=== PATIENT | female | born 1995 | race Caucasian/White ===

== ENCOUNTER → 2017-05-05 | Outpatient (CLI) | payer BC ==
[2017-05-09 01:52] LABS: CHLAMYDIA TRACH RNA*** NOT DETECTED (NOT DETECTED); GC (NEIS GONORRHOEAE)RNA** NOT DETECTED (NOT DETECTED)
== END | disposition home or self-care (01) ==
LOC: C.LABSPEC 14:47
PROVIDERS: ATTEND Obstetrics & Gynecology
DX: Z34.01 Encounter for supervision of normal first pregnancy, first trimester (principal)

== ENCOUNTER → 2017-05-05 | Outpatient (CLI) | payer BC | END | disposition home or self-care (01) | LOC: C.PAPS 15:09 | PROVIDERS: ATTEND Obstetrics & Gynecology | DX: Z34.01 Encounter for supervision of normal first pregnancy, first trimester (principal) ==

== ENCOUNTER → 2017-06-30 | Outpatient (CLI) | payer OTHER ==
[2017-06-30 13:10] LABS: BASO % 0.1 %; BASO ABS # 0.01 K/uL (0-0.2); EOS % 1.5 %; EOS ABS # 0.13 K/uL (0-0.5); HEMATOCRIT 35.9 % (37-47); HEMOGLOBIN 12.6 g/dL (12.0-16.0); IG# 0.05 K/uL (0.00-0.02); LYMPH % 13.5 %; LYMPH ABS # 1.19 K/uL (1.2-3.4); MEAN CELL VOLUME 87.1 fL (80-100); MEAN CORPUSCULAR HEMOGLOBIN 30.6 pg (25-34); MEAN CORPUSCULAR HGB CONC 35.1 g/dl (32-36); MEAN PLATELET VOLUME 9.8 fL (7.4-10.4); MONO % 5.2 %; MONO ABS # 0.46 K/uL (0.11-0.59); NEUT % 79.1 %; NEUT ABS # 6.96 K/uL (1.4-6.5); PLATELET COUNT 228 K/uL (130-400); RED CELL DISTRIBUTION WIDTH CV 13.1 % (11.5-14.5); RED CELL DISTRIBUTION WIDTH SD 42.2 fL (36.4-46.3)
== END | disposition home or self-care (01) ==
LOC: C.LAB 09:49
PROVIDERS: ATTEND Obstetrics & Gynecology
DX: Z34.02 Encounter for supervision of normal first pregnancy, second trimester (principal); Z3A.00 Weeks of gestation of pregnancy not specified

== ENCOUNTER → 2017-09-22 | Outpatient (CLI) | payer OTHER | END | disposition home or self-care (01) | LOC: C.LAB 16:09 | PROVIDERS: ATTEND Obstetrics & Gynecology | DX: R81 Glycosuria (principal) ==

== ENCOUNTER → 2017-10-06 | Outpatient (CLI) | payer OTHER | END | disposition home or self-care (01) | LOC: C.LABSPEC 14:17 | PROVIDERS: ATTEND Obstetrics & Gynecology | DX: O99.89 Other specified diseases and conditions complicating pregnancy, childbirth and the puerperium (principal); R07.0 Pain in throat; Z3A.00 Weeks of gestation of pregnancy not specified ==

== ENCOUNTER → 2018-01-29 | Outpatient (CLI) | payer OTHER ==
[~2018-01-29] MED LIST: PRENTAB26 PO
[2018-01-29 12:58] LABS: HEMATOCRIT 39.9 % (37-47); HEMOGLOBIN 13.4 g/dL (12.0-16.0)
== END | disposition home or self-care (01) ==
LOC: C.LAB 12:05
PROVIDERS: ATTEND Obstetrics & Gynecology
DX: D64.9 Anemia, unspecified (principal)

== ENCOUNTER → 2018-01-29 | Outpatient (CLI) | payer OTHER | END | disposition home or self-care (01) | LOC: C.PAPS 14:49 | PROVIDERS: ATTEND Obstetrics & Gynecology | DX: Z39.2 Encounter for routine postpartum follow-up (principal) ==

== ENCOUNTER 2020-05-30 07:32 | Inpatient (IN) ==
[2020-05-30] MEDS ORDERED: OXYTOCIN 30 UNITS/500 ML BAG IV PRN ×3 (08:30→16:32)
[2020-05-30] MEDS ORDERED: OXYTOCIN 30 UNITS/500ML NSS ONE (08:55)
[2020-05-30 09:06] LABS: Hematocrit (blood only) 36.2 % (37-47); Hemoglobin 12.7 g/dL (12.0-16.0); Mean Corpuscular Hemoglobin 31.4 pg (25-34); Mean Corpuscular Hgb Conc 35.1 g/dL (32-36); Mean Corpuscular Volume 89.4 fL (80-100); Mean Platelet Volume 10.7 fL (7.4-10.4); Platelet Count 311 K/uL (130-400); RDW Coefficient of Variation 13.2 % (11.5-14.5); RDW Standard Deviation 42.7 fL (36.4-46.3); Red Blood Count 4.05 M/uL (4.2-5.4)
[2020-05-30] MEDS: LACTATED RINGER'S 1,000 ML IV PRN ×2 (09:15→17:49)
[2020-05-30] MEDS: LABETALOL HCL 100 MG TAB PO SCH ×2 (11:53→17:32)
[2020-05-30] MEDS ORDERED: SODIUM CHLORIDE 0.9% INJ 10 ML VIAL ONE (15:24)
[2020-05-30] MEDS ORDERED: BUPIVACAINE 0.25% 30 ML VIAL ONE (15:24)
[2020-05-30] MEDS ORDERED: ePHEDrine sulfate 50 MG/ML AMP ONE (15:24)
[2020-05-30] MEDS ORDERED: fentaNYL citrate 100 MCG/2 ML VIAL ONE (15:24)
[2020-05-30] MEDS ORDERED: fentaNYL 2MCG/ML ROPIVACAINE 1.25MG/ML 100 ML BAG EPI ONE (15:25)
--- NOTE | 2020-05-30 15:31 | Anesthesiology Consultation ---
Date of Service May 30, 2020 Assessment & Plan (1) Encounter for pre-operative examination: Chart Review Chart Review: Acceptable Risk for Labor Epidural History Height/Weight Height: 5 ft 6 in Weight: 76.204 kg Allergies Allergy/AdvReac Type Severity Reaction Status Date / Time No Known Allergies Allergy Verified 05/30/20 07:43 Medications Home Medications Medication Instructions Recorded Confirmed Last Taken Multivit/Min/Iron/Fol Ac/Pren 1 tab PO DAILY #0 tab 12/15/17 05/30/20 05/29/20 ( Vitamin) calcium carbonate-vitamin D3 1 tab PO DAILY 05/30/20 05/30/20 05/29/20 [Calcium + D] Active Medications Generic Name Dose Route Start Last Admin Trade Name Freq PRN Reason Stop Dose Admin Lactated Ringer's 1,000 mls @ 125 mls/hr 05/30/20 08:30 05/30/20 09:15 Lr IV 06/01/20 08:29 125 mls/hr .Q8H PRN Administration L&D Protocol Protocol Oxytocin 30 units in 500 mls @ 10 mls/hr 05/30/20 08:35 05/30/20 13:22 Pitocin IV 06/01/20 08:34 0.6 units/hr .Q24H PRN 10 mls/hr Labor Induction/Augmentation Titration Protocol 0.6 UNITS/HR Labetalol HCl 100 mg 05/30/20 12:00 05/30/20 11:53 Labetalol Hcl 100 Mg Tab PO 06/29/20 11:59 Not Given [id number] DARCY Past Medical History Medical History (Updated 05/30/20 @ 15:31 by Mookie Farmer MD) COVID-19 No known health problems Past Family History Family History Mother Diabetes Brother Diabetes Past Surgical History Surgical History No pertinent past surgical history Social History Smoking Status: Never smoker tobacco type: cigarettes Do You Dip or Chew Tobacco: No Smoking End Date: 2014 Hx Alcohol Use: No Hx Substance Use: No Physical Exam Vital Signs Last Vital Signs Temp 36.9 C 05/30/20 11:10 Pulse 85 05/30/20 15:21 Resp 18 05/30/20 12:17 BP 193/107 H 05/30/20 15:21 Testing Laboratory Results 05/30/20 08:54
[2020-05-30] MEDS ORDERED: ePHEDrine sulfate 50 MG/ML AMP IV PRN (16:09)
[2020-05-30] MEDS ORDERED: NALOXONE HCL 0.4 MG/1 ML VIAL/CARP IV PRN (16:09)
[2020-05-30] MEDS ORDERED: NALOXONE HCL 1 MG in SODIUM CHLORIDE 0.9% 1000ML 1,000 ML IV PRN (16:09)
[2020-05-30] MEDS ORDERED: fentaNYL 2MCG/ML ROPIVACAINE 1.25MG/ML 100 ML BAG EPI PRN (16:09)
[2020-05-30] MEDS ORDERED: diphenhydrAMINE 50 MG/ML VIAL IV PRN (16:09)
[2020-05-30] MEDS ORDERED: SUPERCREAM 0.870% 15 GM JAR EXT PRN (16:32)
[2020-05-30] MEDS ORDERED: HYDROCORTISONE ACETATE 25 MG SUPP PR PRN (16:32)
[2020-05-30] MEDS ORDERED: ACETAMINOPHEN 325 MG TAB PO PRN (16:32)
[2020-05-30] MEDS ORDERED: bisacodyL 10 MG SUPP PR PRN (16:32)
[2020-05-30] MEDS ORDERED: oxyCODONE/ACETAMINOPHEN 5mg/325mg TAB PO PRN (16:32)
[2020-05-30] MEDS ORDERED: DIPHTHERIA/TETANUS/PERTUSSIS 0.5 ML SYR/VIAL IM ONE (16:32)
[2020-05-30] MEDS ORDERED: miSOPROStoL 200 MCG TAB PR ONE (16:32)
[2020-05-30] MEDS ORDERED: ACETAMINOPHEN W/CODEINE #3 1 TAB PO PRN (16:32)
[2020-05-30] MEDS: BENZOCAINE 20% AER SPR 82.5 GM CAN EXT PRN (17:51)
--- NOTE | 2020-05-30 17:53 | Delivery Summary ---
DATE OF OPERATION: 05/30/2020 2, para 2, blood type is O positive, group B strep negative, followed in our office for care and delivery. care was complicated by the patient jelena COVID and also developing hypertension. The patient developed hypertension at about 35 weeks, put her on labetalol 100 mg 3 times a day. She did well. Then after we did that, she eventually tested positive for COVID. She had tested positive about 10 days prior to admission, and at the time she was admitted, she had no temperature or symptoms. She was delivered in the [facility] and she was induced at 38 weeks and 6 days due to her hypertension. She was continued on her labetalol. When she came into the hospital, she did spill some protein. We started her on Pitocin. Her cervix being about 4 cm dilated and soft. Eventually contractions became hard. She had epidural and then her membranes ruptured and the head was right there and about 4 pushes, she pushed out a live female via direct occiput anterior position over an intact perineum. was suctioned through the mouth and the nose. Placenta was removed with a partial manual extraction, it was removed intact. With IV Pitocin running, hemostasis was good. There was a superficial laceration of the perineum at about 7 o'clock and this was repaired with a running 3-0 chromic. We then used four 200 mcg tablets of misoprostol to help control the bleeding. Estimated blood loss was 200 mL. Apgars will be deferred to the nurses. The did appear to have some IUGR. Her prior infant was 8 pounds 15 ounces. The patient tolerated the procedure well. I attest to the content of the Intraoperative Record and any orders documented therein. Any exception s are noted below.
[2020-05-30] MEDS: DOCUSATE SODIUM 100 MG CAP PO SCH (19:59)
[2020-05-30] MEDS: IBUPROFEN 600 MG TAB PO PRN (21:28)
[2020-05-31] MEDS ORDERED: PRENATAL VITAMIN 1 TAB PO SCH (08:00)
[2020-05-31] MEDS ORDERED: LABETALOL HCL 100 MG TAB PO SCH (08:00)
[2020-05-31 08:15] LABS: Hematocrit (blood only) 37.8 % (37-47); Hemoglobin 13.2 g/dL (12.0-16.0); Mean Corpuscular Hemoglobin 31.7 pg (25-34); Mean Corpuscular Hgb Conc 34.9 g/dL (32-36); Mean Corpuscular Volume 90.9 fL (80-100); Mean Platelet Volume 10.2 fL (7.4-10.4); Platelet Count 269 K/uL (130-400); RDW Coefficient of Variation 13.4 % (11.5-14.5); RDW Standard Deviation 44.1 fL (36.4-46.3); Red Blood Count 4.16 M/uL (4.2-5.4); White Blood Count 13.45 K/uL (4.8-10.8)
[2020-05-31] MEDS: IBUPROFEN 600 MG TAB PO PRN ×3 (08:48→16:16)
[2020-05-31] MEDS: BENZOCAINE 20% AER SPR 82.5 GM CAN EXT PRN (08:48)
[2020-05-31] MEDS: LABETALOL HCL 100 MG TAB PO SCH ×2 (08:49→11:45)
[2020-05-31] MEDS: DOCUSATE SODIUM 100 MG CAP PO SCH (08:49)
--- NOTE | 2020-05-31 11:24 | Obstetrical Progress Note ---
Date of Service May 31, 2020 Assessment & Plan Admission and Anticipated Discharge Date Admission Date: May 30, 2020 Physical Exam Physical Exam: abdomen soft and non tender ambulating well no calf tenderness vaginal bleeding scant hgb 13.2 Results & Data ([facility]) Vital Signs (Past 12 Hours) Vital Signs Temp Pulse Resp BP 05/31/20 08:15 36.7 C 89 16 136/87 05/31/20 04:00 36.6 C 71 18 118/78 05/30/20 23:50 36.9 C 54 L 18 118/80
[2020-05-31] MEDS ORDERED: bisacodyL 5 MG TABEC PO SCH (20:00)
--- NOTE | 2020-06-08 07:26 | Coding Query ---
CODING QUERY To promote full compliance with coding requirements relating to patient care, provider participation is requested in all cases of turkey boner uncertainty. Please assist us with the question(s) below: Coding Question(s): The Delivery Summary documents, " care was complicated by the patient jelena COVID and also developing hypertension" and , "she eventually tested positive for COVID. She had tested positive about 10 days prior to admission, and at the time she was admitted, she had no temperature or symptoms. She was delivered in the COVID ring and she was induced at 38 weeks and 6 days due to her hypertension". It is not clear if the patient has COVID-19 during this admission or if this is History only of COVID- 19. Please specify below, in your clinical opinion. ( ) COVID-19 during this admission ( x) History only of COVID-19 during this admission ( ) Other: Please Specify Physician's Response(s): Thank you Chula Camargo Principal Diagnosis: "that condition established after study, to be chiefly responsible for occasioning the admission of the patient to the hospital for care." Co-Existing Principal Diagnosis: "when two or more diagnoses equally meet the criteria for principal diagnosis as determined by the circumstances of admission, diagnostic work up, and/or therapy provided, and the Alphabetic Index, Tabular List, or another coding guideline does not provide sequencing direction, any one of the diagnoses may be sequenced first." "When the physician has documented what appears to be a current diagnosis in the body of the record, but has not included the diagnosis in the final diagnostic statement, the physician should be asked whether the diagnosis should be added." (Source Coding Clinic 2 QTR90. p3-4) LIBRA
== END 2020-05-31 17:39 | disposition home or self-care (01) | DRG 807 ==
LOC: 4W 07:32 → 3W 20:11